=== PATIENT | female | born 1960 | race Caucasian/White ===

== ENCOUNTER 2019-10-13 10:40 | Emergency (ER) | payer OTHER ==
[~2019-10-13] VITALS: Ht 160 cm; Wt 52.2 kg
[2019-10-13] MEDS ORDERED: NEURONTIN100 MG PO (11:00)
== END 2019-10-13 12:57 | disposition home or self-care (01) ==
LOC: ED 10:40
DX: K59.00 Constipation, unspecified (principal); Z88.1 Allergy status to other antibiotic agents; Z79.899 Other long term (current) drug therapy
CPT/HCPCS: 74022; 80053; 81001; 83690; 85025; 96374; 99284-25; J2405; J7030

== ENCOUNTER 2022-06-28 08:59 | Emergency (ER) | payer OTHER ==
[~2022-06-28] VITALS: Ht 160 cm; Wt 52.2 kg
[~2022-06-28 08:59] MED LIST: NEURONTIN100 MG PO
[2022-06-28] MEDS ORDERED: CYCLOBENZAPRINE10 MG PO (10:31)
== END 2022-06-28 10:40 | disposition home or self-care (01) ==
LOC: ED 08:59
DX: M79.18 Myalgia, other site (principal); M54.9 Dorsalgia, unspecified; Z88.1 Allergy status to other antibiotic agents
CPT/HCPCS: 36415; 74176; 80053; 81003; 85025; 96374; 96375; 99284-25; A9270; J1885; J2405; J7030